=== PATIENT | male | born 1975 | race Caucasian/White ===

== ENCOUNTER 2022-10-15 17:25 | Inpatient (IN) | payer BC, OTHER ==
[2022-10-15 18:15] VITALS: BMI 23.7
[2022-10-15] MEDS ORDERED: ACETAMINOPHEN 325 MG TABLET (FP) PO PRN ×2 (20:44)
[2022-10-15] MEDS ORDERED: LOPERAMIDE HCL 2 MG CAPSULE PO PRN (20:44)
[2022-10-15] MEDS ORDERED: IBUPROFEN 600 MG TABLET (FP) PO PRN (20:44)
[2022-10-15] MEDS ORDERED: MAG HYDROX/AL HYDROX/SIMETH 30 ML UNIT-DOSE CUP PO PRN (20:44)
[2022-10-15] MEDS ORDERED: NALOXONE HCL (KLOXXADO) 8 MG SPRAY NS PRN (20:44)
[2022-10-15] MEDS ORDERED: BISMUTH SUBSALICYLATE 524 MG/30 ML PO PRN (20:44)
[2022-10-15] MEDS ORDERED: ONDANSETRON *ODT* 4 MG TABLET SL PRN (20:44)
[2022-10-15] MEDS ORDERED: POLYETHYLENE GLYCOL (HEALTHYLAX) 3350 17 GM PACKET PO PRN (20:44)
[2022-10-15] MEDS ORDERED: IBUPROFEN 400 MG TABLET (FP) PO PRN (20:44)
[2022-10-15] MEDS ORDERED: MAGNESIUM HYDROX 2400MG/30ML ORAL SUSPENSION 30 ML CUP PO PRN (20:44)
[2022-10-15] MEDS ORDERED: DICYCLOMINE HCL 10 MG CAPSULE PO PRN (20:44)
[2022-10-15] MEDS: chlordiazePOXIDE HCL 25 MG CAPSULE PO PRN (21:05)
[2022-10-15] MEDS ORDERED: MELATONIN 5 MG TABLETS PO SCH (22:00)
[2022-10-15] MEDS: chlordiazePOXIDE HCL 25 MG CAPSULE PO SCH (22:19)
[2022-10-15] MEDS: THIAMINE HCL 100 MG TABLET (FP) PO SCH (22:19)
[2022-10-16] MEDS: chlordiazePOXIDE HCL 25 MG CAPSULE PO PRN ×3 (01:09→19:52)
[2022-10-16] MEDS: chlordiazePOXIDE HCL 25 MG CAPSULE PO SCH ×4 (05:28→22:27)
[2022-10-16] MEDS: PRENATAL VITAMINS W/ FOLIC ACID TABLET (FP) PO SCH (10:10)
[2022-10-16] MEDS ORDERED: MELATONIN 5 MG TABLETS PO PRN (11:10)
[2022-10-16] MEDS: BENZOCAINE/MENTHOL (CHLORASEPTIC ) LOZENGE MM PRN ×2 (17:16→19:49)
[2022-10-16] MEDS: THIAMINE HCL 100 MG TABLET (FP) PO SCH (22:27)
[2022-10-17] MEDS: chlordiazePOXIDE HCL 25 MG CAPSULE PO SCH ×2 (05:31→10:17)
[2022-10-17] MEDS: PRENATAL VITAMINS W/ FOLIC ACID TABLET (FP) PO SCH (10:17)
[2022-10-17 13:02] VITALS: BP 128/92; PULSE 111; RESP 18; TEMP 97.3
[2022-10-17 13:36] LABS: HEMATOCRIT 42.8 % (35.4-49); HEMOGLOBIN 15.1 GM/dL (11.7-16.9); MCH 35.4 pg (25.7-33.7); MCHC 35.3 g/dl (32.0-35.9); MEAN CELL VOLUME 100.4 fl (80-96); MEAN PLT VOLUME 7.6 fl (7.5-11.1); PLATELET COUNT 308 10^3/uL (134-434); RBC 4.27 M/mm3 (4.00-5.60); RDW 12.7 % (11.9-15.9); WHITE BLOOD COUNT 4.4 K/mm3 (4.0-10.0)
[2022-10-17 13:49] LABS: BLOOD UREA NITROGEN 11.2 mg/dL (7-18); CALCIUM 9.7 mg/dL (8.5-10.1)
[2022-10-17 13:52] LABS: CREATININE 0.9 mg/dL (0.55-1.3)
[2022-10-17 13:54] LABS: BILIRUBIN,TOTAL 1.8 mg/dL (0.2-1); TOT PROT 7.4 g/dl (6.4-8.2)
[2022-10-18] MEDS ORDERED: chlordiazePOXIDE HCL 10 MG CAPSULE PO PRN
[2022-10-18] MEDS ORDERED: chlordiazePOXIDE HCL 10 MG CAPSULE PO SCH (05:00)
[2022-10-19] MEDS ORDERED: chlordiazePOXIDE HCL 10 MG CAPSULE PO SCH (05:00)
[2022-10-20] MEDS ORDERED: chlordiazePOXIDE HCL 10 MG CAPSULE PO ONE (05:00)
== END 2022-10-17 12:48 | disposition left against medical advice (07) | DRG 894 ==
LOC: YASAS 17:25 → Y3N 21:40
PROVIDERS: ADMIT Allergy & Immunology; ATTEND Surgery
PROC: HZ2ZZZZ Detoxification Services for Substance Abuse Treatment (ICD-10-PCS; principal; 2022-10-15)
DX: F10.230 Alcohol dependence with withdrawal, uncomplicated (principal); F19.282 Other psychoactive substance dependence with psychoactive substance-induced sleep disorder; F19.24 Other psychoactive substance dependence with psychoactive substance-induced mood disorder; E78.5 Hyperlipidemia, unspecified; E80.6 Other disorders of bilirubin metabolism; I10 Essential (primary) hypertension; R73.9 Hyperglycemia, unspecified; R74.01 Elevation of levels of liver transaminase levels
CPT/HCPCS: 36415; 80053; 85027; 86780; 87811; C9803-CS; U0003; U0005